=== PATIENT | female | born 1955 | race Caucasian/White ===

== ENCOUNTER 2019-06-29 21:45 | Inpatient (IN) ==
[2019-06-30] MEDS ORDERED: ONDANSETRON INJ 2 MG/ML 2 ML VIAL IV PRN (01:57)
[2019-06-30] MEDS ORDERED: KETOROLAC 30 MG/ML VIAL IV PRN (01:57)
[2019-06-30] MEDS ORDERED: ACETAMINOPHEN 325 MG TAB PO PRN ×2 (01:57→02:06)
--- NOTE | 2019-06-30 02:16 | History & Physical Report ---
Date of Service June 30, 2019 Assessment & Plan (1) Femur fracture, right: 63 yo F with hx osteoporosis admitted for evaluation and repair of right distal femur fracture secondary to mechanical fall. 1) Distal femur fracture - pain control with tylenol and toradol, patient has requested to avoid narcotics as she had a bad experience with percocet previously. - orthopedic surgery consult - CBC, BMP in AM to eval electrolytes and Hg/Hct 2) Osteoporosis - Vit D and calcium level in AM 3) Left sided rib pain - CXR ordered to assess for rib splint or fracture DVT ppx: not indicated, low risk FEN/GI: NPO, IV NS @ 117 ml/hr Code Status: Full Code Dispo: Med/Surg (2) Osteoporosis: Admission and Anticipated Discharge Date Admission Date: June 30, 2019 History of Present Illness 63 yo F with osteoporosis and hx of multiple fractures direct admitted to the medical service from outside hospital after mechanical fall resulting in distal R femur fracture. She says she tripped over a conveyor belt at work, fell onto her right knee and then fell sideways onto her left side. She denies any seizures, blurry vision, dizziness prior to the fall and denies loss of consciousness. She rates the pain as a 12/10 when trying to move the right leg and is tolerable when she keeps the leg still. She denies any recent sick contacts, fevers, chills. Attests to some left sided intercostal soreness but denies radiation of pain. Primary Care Provider: Ras Capellan Allergies Allergy/AdvReac Type Severity Reaction Status Date / Time azithromycin AdvReac Dizziness Verified 06/30/19 01:59 Penicillins AdvReac Unknown Verified 06/30/19 01:59 Past Med/Surg History Medical History Hearing deficit Tinnitus Shoulder pain with history of repair of rotator cuff Surgical History History of arthroscopy 08/15/17 shoulder History of breast biopsy right History of cataract surgery cataract extraction and insertion of intraocular lens History of repair of rotator cuff right x1, left x2 Hx of lumpectomy right breast, benign Family History Mother Alzheimer disease Father Hypertension Family/Other Cancer Diabetes mellitus, type 2 Social History Preferred Language: Botswanan Communication Ability: Effective Order Manager Required: No Beliefs That Will Affect Care: None marital status: Current Living Situation: Spouse Other Information That Helps Us Care for You: No Feels Safe at Home: Yes Safety Concerns: Feels Safe At This Time Smoking Status: Never smoker Hx Alcohol Use: Yes Alcohol type: beer and wine Hx Substance Use: No Review of Systems Constitutional: no fever, no chills, no body aches and no fatigue Respiratory: no cough and no dyspnea Cardiovascular: no chest pain, no dyspnea and no edema Gastrointestinal: no abdominal pain, no nausea, no vomiting, no constipation and no diarrhea/loose stools Genitourinary: no dysuria Neurologic: + falls; no loss of sensation and no numbness Physical Exam Constitutional: cooperative; no acute distress and not ill appearing Neck: normal visual inspection Respiratory: normal respiratory effort and able to speak in complete sentences; no respiratory distress, no labored breathing, no retractions, no cough and no audible wheezes Auscultation: lungs clear to auscultation bila terally; no crackles, no rales, no rhonchi and no wheezes Cardiovascular: Rate/Rhythm: regular rate and regular rhythm Heart Sounds: normal S1 and normal S2; no gallop, no murmur and no cardiac rub Vessels: posterior tibial pulses present Extremities: no pedal edema and no edema Chest (Breasts): Additional Comments: Mild tenderness/soreness to palpation under left breast, no discernable point tenderness along rib. No overlying bruising or erythema. Gastrointestinal (Abdomen): Inspection/Auscultation: abdomen normal to inspection and normal bowel sounds; abdomen not distended Percussion/Palpation: abdomen soft; abdomen nontender, no guarding, abdomen not rigid and no abdominal mass Musculoskeletal: abrasions present on knees bilaterally, mild superficial redness on right thigh, no discernable hematoma, no calf tenderness bilaterally, no difference in length of lower extremities Results & Data Results & Data ([facility]) Vital Signs (Past 12 Hours) Vital Signs Temp Pulse Resp BP Pulse Ox 06/30/19 00:35 36.9 C 62 16 149/86 H 98 Distal R femur Fracture per outside XR Supervising Physician Co-Signing Physician Notes Attending addendum: I have physically seen this patient, have supervised the medical residents activities, and agree with the H&P unless as otherwise noted. Assessment and Plan: Distal right femur fracture- Patient accepted in transfer from [facility]. Tylenol 650 mg p.o. every 6 hours PRN mild pain or temperature. Toradol 30 mg IV every 6 hours PRN moderate pain. Morphine sulfate 2 mg IV every 4 hours as needed severe pain. Order baseline laboratories CBC with differential, chemistry profile, magnesium, PT, PTT, INR, EKG and chest x-ray. Orthopedic surgery is aware of the patient and will see patient in the a.m. N.p.o. after midnight. Remainder of orders and notations as noted. Resident Activity Tracking Resident Involvement: Resident Care Provided Care Provided: Adult [facility]
[2019-06-30] MEDS: SODIUM CHLORIDE 0.9% 1000ML 1,000 ML IV SCH ×3 (02:19→19:39)
[2019-06-30 05:50] LABS: Basophils # (auto) 0.02 K/uL (0-0.2); Basophils % (auto) 0.2 %; Eosinophils # (auto) 0.04 K/uL (0-0.5); Eosinophils % (auto) 0.5 %; Hematocrit (blood only) 37.1 % (37-47); Hemoglobin 12.4 g/dL (12.0-16.0); Immature Granulocytes # (auto) 0.01 K/uL (0.00-0.02); Immature Granulocytes % (auto) 0.1 %; Lymphocytes # (auto) 1.42 K/uL (1.2-3.4); Lymphocytes % (auto) 16.6 %; Mean Corpuscular Hemoglobin 31.4 pg (25-34); Mean Corpuscular Hgb Conc 33.4 g/dL (32-36); Mean Corpuscular Volume 93.9 fL (80-100); Mean Platelet Volume 10.4 fL (7.4-10.4); Monocytes # (auto) 0.51 K/uL (0.11-0.59); Neutrophils # (auto) 6.55 K/uL (1.4-6.5); Neutrophils % (auto) 76.6 %; Platelet Count 263 K/uL (130-400); RDW Coefficient of Variation 12.8 % (11.5-14.5); RDW Standard Deviation 44.4 fL (36.4-46.3); Red Blood Count 3.95 M/uL (4.2-5.4); White Blood Count 8.55 K/uL (4.8-10.8)
[2019-06-30 06:28] LABS: Calcium 8.5 mg/dl (8.5-10.1); Creatinine Clr Calc Pharmacy 74.3 ml/min; Est GFR (African American) 95.4; Est GFR (Non-African American) 82.3; Potassium 3.8 mmol/L (3.5-5.1)
--- NOTE | 2019-06-30 08:11 | XRay Report ---
XR ribs LT min 3V w CXR1V CLINICAL HISTORY: 63 years-old Female presenting with left rib pain. TECHNIQUE: AP view of the chest and frontal and oblique views of the left ribs were obtained. COMPARISON: None. FINDINGS: Atherosclerosis of the aortic arch. Top normal size of the cardiac silhouette. Lungs may be mildly hy perinflated. No focal opacity. No large effusion or pneumothorax. Mild multilevel degenerative change s of the spine. Upper abdomen normal. No displaced left rib fracture. IMPRESSION: 1. No acute cardiopulmonary disease. 2. No radiographic evidence of left rib fracture. ACT 112: Negative or not required by law. Electronically signed by: Cristhian Monterroso M.D. 06/30/2019 8:10 AM
--- NOTE | 2019-06-30 11:21 | Orthopedic Consultation ---
Date of Consultation June 30, 2019 Assessment & Plan (1) Femur fracture, right: Right distal femur fracture minimally displaced. I discussed the case with Dr. Valerio and he has reviewed the films. Plan for CT scan of the right knee and for completeness, we will get a full-length femur film. For now, plan for immobilizer to the right knee, ice and elevation, pain control. We will review the CT scan when finished and if it is truly nondisplaced fracture, we will plan for orthotics to measure her for a hinged knee brace locked in extension and start her on PT and OT protocols with nonweightbearing right lower extremity. Await CT scan for final decision on treatment. Thank you for this consult. History of Present Illness Reason for Consultation: Right distal femur fracture. Attending Physician: Yossi Beard DO History of Present Illness Patient is a 63-year-old white female who states that she was at work yesterday and while walking around a conveyor belt, her left foot caught a piece of steel I-beam that was sticking out from the conveyor belt, she lost her balance, and fell onto her right knee and rolled onto her left side. She had immediate pain in her right knee. She was unable to ambulate and was unable to bear weight on the right lower extremity because of the pain in her right knee. She had noticed that the knee had swollen and at that point she was taken to the hospital at [facility]. X-rays were taken and was found that she had a suspected distal femur fracture. She was transferred down to [facility]. [facility] and we have been asked to see her for her femur fracture. Currently she is awake and alert and has no complaints. Pain is under better control and she is tolerating well. Trying to move the knee however causes her discomfort. Denies any loss of consciousness at the time of the fall. She denies any chest pain, shortness of breath, lightheadedness prior to or after the fall. Allergies Allergy/AdvReac Type Severity Reaction Status Date / Time azithromycin AdvReac Dizziness Verified 06/30/19 01:59 Penicillins AdvReac Unknown Verified 06/30/19 01:59 Patient History Medical History Hearing deficit Tinnitus Shoulder pain with history of repair of rotator cuff Surgical History History of arthroscopy 08/15/17 shoulder History of breast biopsy right History of cataract surgery cataract extraction and insertion of intraocular lens History of repair of rotator cuff right x1, left x2 Hx of lumpectomy right breast, benign Family History Mother Alzheimer disease Father Hypertension Family/Other Cancer Diabetes mellitus, type 2 Social History Preferred Language: Italian Communication Ability: Effective Documentum Consultant Required: No Beliefs That Will Affect Care: None marital status: Current Living Situation: Spouse Other Information That Helps Us Care for You: No Feels Safe at Home: Yes Safety Concerns: Feels Safe At This Time Smoking Status: Never smoker Hx Alcohol Use: Yes Alcohol type: beer and wine Hx Substance Use: No Review of Systems Review of Systems: All systems reviewed & are unremarkable except as noted in HPI & below As per admitting history and physical. No recent fevers, chills, unexplained weight loss or weight gain, flu or cold-like symptoms, shortness of breath, chest pain, chest pressure, increased cough or sputum production, abdominal pain, nausea, vomiting, diarrhea, melena, dysuria. Physical Exam Physical Exam: Initial exam focuses on the right lower extremity. Abrasions are noted on both knees. Right knee is moderately swollen and mildly tense on palpation with tenderness. Left knee appears not to be swollen compared to the right. Range of motion is very limited with the right knee due to pain at this time. She allows me to take her through gentle range of motion and I can get her to full extension however flexion is very limited due to tightness from her effusion and pain in the distal femur. It is difficult to assess the collateral ligaments at this time but I do not feel that they have been compromised. She has exquisite tenderness on palpation and also examination of her lateral collateral/distal lateral condyle. Much less so on the medial aspect. Trying to assess the cruciate ligaments is difficult with her swelling but they appear intact. She has no tenderness of the mid thigh and denies pain in the right hip on palpation. Range of motion is limited when attempting this due to her right knee pain. Right ankle and toes have good range of motion at this time and are nontender. Left lower extremity appears unaffected and has good range of motion at the left hip knee and ankle. She has some mild tenderness of her left elbow however she has good range of motion of the elbow at this time without crepitus or severe pain. No overt areas of bruising or abrasions are noted. Shoulders are nontender bilaterally on palpation and range of motion is intact. Right elbow has good range of motion is nontender. Both wrists are without discomfort and have good range of motion. Her neck is nontender on palpation and range of motion is intact. She denies any thoracic or low back pain at this time. There is no gross motor or sensory loss seen at this time. Distal pulses are equal bilaterally of the upper and lower extremities. Results & Data ([facility]) Vital Signs (Past 12 Hours) Vital Signs Temp Pulse Pulse Resp BP BP Pulse Ox 06/30/19 07:25 36.9 C 73 16 127/70 97 06/30/19 00:35 36.9 C 62 16 149/86 H 98
--- NOTE | 2019-06-30 12:10 | History & Physical Bridge Note ---
Date of Service June 30, 2019 History & Physical Bridge Note I have examined the patient, reviewed the History & Physical and in the interval since the performance of the History & Physical I have noted the following changes of clinical significance: patient doing well, says her pain is a 1 out of 10 if she does not move, becomes 10 out of 10 with movement talked with orthopedics, no plans for surgery today will get CT of the femur to better determine fracture, if it involves joint at all leaning towards non operative management, would just be NWB on the affected leg allow patient to eat today
--- NOTE | 2019-06-30 12:49 | CT Scan Report ---
CT knee RT wo con HISTORY: 63 years-old Female Distal Femur Fx acute fracture of the right distal femur COMPARISON: Right knee radiographs 06/29/2019 TECHNIQUE: Multiple axial CT images of the right knee were obtained without the use of IV contrast. A dose lowering technique was used consistent with the principals of ALARA. FINDINGS: There is a large lipohemarthrosis present. Mild to moderate deep tissue edema surrounds the distal fe mur. Arterial calcifications are noted. There is an acute obliquely oriented intra-articular fracture of the distal femoral metadiaphysis with proximal extension of the fracture outside the [id number] w extending at least 11 cm proximal to the distal articular surface of the lateral femoral condyle. T he distal extent of the fracture extends into the anterior and posterior lateral portions of the inte rcondylar distribution femur. Fracture separation anteriorly measures up to 3 cm transversely. No int ra-articular loose body. The medial femoral condyle is intact. The imaged proximal tibia and fibula a lso appear intact. Mild to moderate medial compartment with mild lateral and patellofemoral compartme nt osteoarthritis. Demineralized appearance of the bones. IMPRESSION: 1. Acute intra-articular distal femoral fracture without significant displacement as detailed above. Note that the proximal extent of the fracture extends into the femoral diaphysis outside the field of view. 2. Large lipohemarthrosis. 3. No additional acute fracture or intra-articular loose body. 4. 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 ACT 112: Negative or not required by law. The above report was generated using voice recognition software. It may contain grammatical, syntax o r spelling errors. Electronically signed by: Andreas Aguilera M.D. 06/30/2019 12:48 PM
--- NOTE | 2019-06-30 13:12 | XRay Report ---
XR femur RT 2V routine HISTORY: 63 years-old Female Right Distal Femur Fx acute femoral fracture COMPARISON: CT of the right knee of same day, radiograph the right knee 06/29/2019 TECHNIQUE: 2 views of the right femur FINDINGS: Acute intra-articular fracture of the distal femoral metadiaphysis extends into the lateral aspect of the intercondylar distal femur. No significant displacement. The proximal extent of the fracture is approximately 16 cm from the distal articular cortex. Mild right hip osteoarthritis. Large lipohemart hrosis of the knee. IMPRESSION: 1. Acute nondisplaced intra-articular fracture of the distal femoral metadiaphysis, proximal extent o f the fracture extending greater than 16 cm from the distal articular cortex. 2. Large lipohemarthrosis. ACT 112: Negative or not required by law. The above report was generated using voice recognition software. It may contain grammatical, syntax o r spelling errors. Electronically signed by: Andreas Aguilera M.D. 06/30/2019 1:10 PM
[2019-07-01] MEDS: SODIUM CHLORIDE 0.9% 1000ML 1,000 ML IV SCH (03:42)
--- NOTE | 2019-07-01 09:54 | Orthopedic Progress Note ---
Date of Service July 01, 2019 Assessment & Plan (1) Femur fracture, right: Right distal intra-articular femur fracture Case discussed with Dr. Valeroi. With the articular fracture that is widened approximately 4 to 5 mm at the patella femoral joint line, it is felt that ORIF with 7.3 cannulated screws is warranted to alleviate any tracking problems or damage to the patellar articular surface; also to aid with healing. Patient is in agreement with surgery. Patient is added on the OR schedule for tomorrow. Admission and Anticipated Discharge Date Admission Date: June 30, 2019 Subjective Patient currently sitting up in bed. She is awake and alert. She appears comfortable. No new complaints. Asking that her IV fluids can be held for now if not needed. We discussed that I would talk to Dr. Orellana about that. I discussed the CT findings with [place] [facility] physicians. Discussed with the patient that the fracture that goes down into the distal portion of the distal femur will need surgical correction. Discussed that most likely, 7.3 cannulated screws be used to help close the fracture gap. The widening of the fracture in the joint will possibly cause problems with subsidence and distal femoral alignment, patella tracking and possibly cause damage to the articular surface of the distal femur and the patella. Patient is understanding and is in agreement for her surgery. All potential risks and benefits related to the patient's care were considered regarding the current Covid-19 pandemic. The patient's current condition is deemed as urgent necessitating surgery now and performing surgery at this time will prevent further morbidity and likely worsening of the patient's condition including further displacement of the fracture, nonunion, DVT, PE, skin ulceration, osteomyelitis, loss of limb or loss of life. The patient will be scheduled for surgery now without any further waiting period as this condition is urgent and indicated. Physical Exam Physical Exam: Patient tolerating the immobilizer well. Leg is elevated on one pillow. No new changes to the exam. Neurovascular is intact. Toes are mobile. Results & Data ([facility]) Vital Signs (Past 12 Hours) Vital Signs Temp Pulse Resp BP Pulse Ox 07/01/19 07:18 36.8 C 61 18 168/87 H 96 06/30/19 23:13 37.1 C 75 16 151/81 H 96 Diagnostic Findings Patient: REBECCA CHATMAN Date: 06/30/19 MR#: [id number]: [id number] [facility] Acct ID:[id number]: [facility] Zip: [place] [address] Age: 63Location: 3E Sex: F Room/Bed: E3041 Att Phy: Yossi Beard D.O.Diagnosis: RIGHT FEMUR FRACTURE Beti Phy: Ras Capellan M.D.Service Date: 06/30/19 Fam Phy:Interpreting Phy: Deo Aguilera Admit Phy: Lobo Mayo M.D. Ordering Phy: Guillermo Serrano PA-C cc: ~ CT knee RT wo con HISTORY: 63 years-old Female Distal Femur Fx acute fracture of the right distal femur COMPARISON: Right knee radiographs 06/29/2019 TECHNIQUE: Multiple axial CT images of the right knee were obtained without the use of IV contrast. A dose lowering technique was used consistent with the principals of ALARA. FINDINGS: There is a large lipohemarthrosis present. Mild to moderate deep tissue edema surrounds the distal femur. Arterial calcifications are noted. There is an acute obliquely oriented intra-articular fracture of the distal femoral metadiaphysis with proximal extension of the fracture outside the [id number] extending at least 11 cm proximal to the distal articular surface of the lateral femoral condyle. The distal extent of the fracture extends into the anterior and posterior lateral portions of the intercondylar distribution femur. Fracture separation anteriorly measures up to 3 cm transversely. No intra-articular loose body. The medial femoral condyle is intact. The imaged proximal tibia and fibula also appear intact. Mild to moderate medial compartment with mild lateral and patellofemoral compartment osteoarthritis. Demineralized appearance of the bones. IMPRESSION: 1. Acute intra-articular distal femoral fracture without significant displacement as detailed above. Note that the proximal extent of the fracture extends into the femoral diaphysis outside the field of view. 2. Large lipohemarthrosis. 3. No additional acute fracture or intra-articular loose body. 4. 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 XR femur RT 2V routine HISTORY: 63 years-old Female Right Distal Femur Fx acute femoral fracture COMPARISON: CT of the right knee of same day, radiograph the right knee 06/29/2019 TECHNIQUE: 2 views of the right femur FINDINGS: Acute intra-articular fracture of the distal femoral metadiaphysis extends into the lateral aspect of the intercondylar distal femur. No significant displacement. The proximal extent of the fracture is approximately 16 cm from the distal articular cortex. Mild right hip osteoarthritis. Large lipohemarthrosis of the knee. IMPRESSION: 1. Acute nondisplaced intra-articular fracture of the distal femoral metadiaphysis, proximal extent of the fracture extending greater than 16 cm from the distal articular cortex. 2. Large lipohemarthrosis.
--- NOTE | 2019-07-01 11:06 | Hospitalist Progress Note ---
Date of Service July 01, 2019 Assessment & Plan (1) Femur fracture, right: Right distal femur fracture after a mechanical fall. - Plan for surgery tomorrow to fix distal end. - NPO @ midnight - Pain control (2) DVT prophylaxis: SCDs - Low DVT risk per admission calculator - Per ortho, will start ASA after surgery for post-op DVT ppx Admission and Anticipated Discharge Date Admission Date: June 30, 2019 Subjective Less pain and swelling today. In good spirits. Overall, has been up and in the room. Reports no fevers/chills, chest pain, shortness of breath, abdominal pain, nausea, or vomiting. Physical Exam Constitutional: WD/WN, vitals as above Eyes: EOM intact bilaterally; no conjunctival abnormality ENMT: external ear and nose normal, oropharynx normal Neck: trachea midline, no thyromegaly normal visual inspection Respiratory: normal respiratory effort, lungs clear to auscultation no respiratory distress Cardiovascular: RRR, no murmur, no edema Gastrointestinal (Abdomen): Inspection/Auscultation: abdomen normal to inspection; abdomen not distended Musculoskeletal: no cyanosis or clubbing, extremities motor strength 5/5 Extremities: + limited ROM of extremities (Right knee brace on) Skin: no rashes, warm and dry Neurologic: moves all extremities and awake Psychiatric: Orientation: alert, oriented to person and cooperative Results & Data Results & Data ([facility]) Vital Signs (Past 12 Hours) Vital Signs Temp Pulse Resp BP Pulse Ox 07/01/19 07:18 36.8 C 61 18 168/87 H 96 06/30/19 23:13 37.1 C 75 16 151/81 H 96 PG Care Time/CCT Total # of Minutes Spent Total Time Spent with Patient: Total time spent is greater than 50% in coordination of care (as documented) at patient's floor/unit and/or counseling patient: Coding Level of Care Code 45889 Subseq Hosp Care Lvl 2 Diagnoses Femur fracture, right S72.91XA DVT prophylaxis Z29.9
--- NOTE | 2019-07-01 15:05 | Anesthesiology Consultation ---
Date of Service July 01, 2019 Assessment & Plan (1) Encounter for pre-operative examination: Chart Review Chart Review: Acceptable Risk for Surgery and Patient NOT seen in Pre Admission Testing Type and screen pending at this time. Will order ECG as one not seen in our system. No chemical DVT prophylaxis noted so could consider SAB if deemed necessary. Consults Requested none History Surgery Operation Date: 07/02/19 07:30 Proposed Procedures p Right Distal Femur Fracture Open Reduction Internal Fixation - Yamil Valerio DO Height/Weight Height: 5 ft 4 in Weight: 77.4 kg Allergies Allergy/AdvReac Type Severity Reaction Status Date / Time azithromycin AdvReac Dizziness Verified 06/30/19 01:59 Penicillins AdvReac Unknown Verified 06/30/19 01:59 Medications Active Medications Generic Name Dose Route Start Last Admin Trade Name Freq PRN Reason Stop Dose Admin Acetaminophen 650 mg 06/30/19 02:06 06/30/19 23:30 Tylenol PO 07/30/19 01:56 650 mg Q6H PRN Administration Pain NPO Date Last Intake of Fluids: 07/01/19 Time Last Intake of Fluids: 23:59 Date Last Intake of Solids: 07/01/19 Time Last Intake of Solids: 23:59 Past Medical History Medical History Hearing deficit Tinnitus Shoulder pain with history of repair of rotator cuff HPI: tripped on a conveyor belt at work and sustained right distal femur fracture. Past Family History Family History Mother Alzheimer disease Father Hypertension Family/Other Cancer Diabetes mellitus, type 2 Past Surgical History Surgical History History of arthroscopy 08/15/17 shoulder History of breast biopsy right History of cataract surgery cataract extraction and insertion of intraocular lens History of repair of rotator cuff right x1, left x2 Hx of lumpectomy right breast, benign Social History Smoking Status: Never smoker Hx Alcohol Use: Yes Alcohol type: beer and wine alcohol intake frequency: holidays/special occasions only Hx Substance Use: No substance use type: does not use Physical Exam Vital Signs Last Vital Signs Temp 36.8 C 07/01/19 07:18 Pulse 61 07/01/19 07:18 Resp 18 07/01/19 07:18 BP 168/87 H 07/01/19 07:18 Pulse Ox 96 07/01/19 07:18 Testing Laboratory Results 06/30/19 05:29 06/30/19 05:29 Chest X-Ray Date: 06/30/19 XR ribs LT min 3V w [id number] CLINICAL HISTORY: 63 years-old Female presenting with left rib pain. TECHNIQUE: AP view of the chest and frontal and oblique views of the left ribs were obtained. COMPARISON: None. FINDINGS: Atherosclerosis of the aortic arch. Top normal size of the cardiac silhouette. Lungs may be mildly hyperinflated. No focal opacity. No large effusion or pneumothorax. Mild multilevel degenerative changes of the spine. Upper abdomen normal. No displaced left rib fracture. IMPRESSION: 1. No acute cardiopulmonary disease. 2. No radiographic evidence of left rib fracture.
[2019-07-02] MEDS ORDERED: fentaNYL citrate 100 MCG/2 ML VIAL ONE (06:36)
[2019-07-02] MEDS ORDERED: MIDAZOLAM HCL 1 MG/ML 2ML VIAL ONE (06:36)
[2019-07-02] MEDS ORDERED: CEFAZOLIN 2000MG 2,000 MG/15 ML SYR IV ONE (07:52)
--- NOTE | 2019-07-02 07:52 | History & Physical Bridge Note ---
Date of Service July 02, 2019 History & Physical Bridge Note I have examined the patient, reviewed the History & Physical and in the interval since the performance of the History & Physical I have noted the following changes of clinical significance: All potential risks and benefits related to the patient's care were considered regarding the current Covid-19 pandemic. The patient's current condition is deemed as urgent necessitating surgery now and performing surgery at this time will prevent further morbidity and likely worsening of the patient's condition including further displacement of the fracture, nonunion, DVT, PE, skin ulceration, osteomyelitis, loss of limb or loss of life. The patient will be scheduled for surgery now without any further waiting period as this condition is urgent and indicated.
[2019-07-02] MEDS ORDERED: CEFAZOLIN 2,000 MG/15 ML IV PUSH IV ONE (07:53)
[2019-07-02] MEDS ORDERED: PROPOFOL IV EMULSION 10 MG/ML 20 ML VIAL IV ONE (08:14)
[2019-07-02] MEDS ORDERED: MEPERIDINE HCL 25 MG/ML CARP/VIAL IV PRN (09:09)
[2019-07-02] MEDS ORDERED: PHENYLEPHRINE 100MCG/ML 5ML SYR IV PRN (09:09)
[2019-07-02] MEDS ORDERED: LABETALOL HCL IV 5 MG/ML 20ML IV PRN (09:09)
[2019-07-02] MEDS ORDERED: ATROPINE SULFATE 0.1 MG/ML 10ML SYR IV PRN (09:09)
[2019-07-02] MEDS ORDERED: fentaNYL citrate 100 MCG/2 ML VIAL IV PRN (09:09)
[2019-07-02] MEDS ORDERED: ePHEDrine sulfate 50 MG/ML AMP IV PRN (09:09)
[2019-07-02] MEDS ORDERED: ONDANSETRON INJ 2 MG/ML 2 ML VIAL IV PRN ×2 (09:09→11:52)
[2019-07-02] MEDS ORDERED: HYDROmorphone INJ 1 MG/ML SYRINGE IV PRN (09:09)
[2019-07-02] MEDS ORDERED: BUPIVACAINE 0.5 % 5 MG/1 ML MPF 30ML VIAL ONE (09:15)
--- NOTE | 2019-07-02 09:36 | Fluoroscopy Report ---
FL femur RT 2V HISTORY: 63 years-old Female RT DISTAL FEMUR FX follow-up study in a patient with right distal femor al fracture COMPARISON: Right femur radiographs 06/30/2019 TECHNIQUE: 2 spot fluoroscopic images of the right femur were obtained utilizing 153.9 seconds fluoro scopy time FINDINGS: Status post placement of 3 lateral to medial approach elongated cannulated screws fixating the previo usly described distal femoral fracture. There is satisfactory alignment. The hardware appears intact. Expected postoperative soft tissue swelling with deep tissue air. IMPRESSION: Fluoroscopic assistance as above. Please see operative report for further details. ACT 112: Negative or not required by law. The above report was generated using voice recognition software. It may contain grammatical, syntax o r spelling errors. Electronically signed by: Andreas Aguilera M.D. 07/02/2019 9:34 AM
--- NOTE | 2019-07-02 09:38 | Post Operative Brief Note ---
Immediate Post Op Note v1 Date of Surgery July 02, 2019 Pre & Post Diagnosis Operation Date: 07/02/19 07:30 Pre-Op Diagnosis: RIGHT DISPLACED INTERCONDYLAR DISTAL FEMUR FRACTURE, HEMARTHROSIS RIGHT KNEE Post-Op Diagnosis: RIGHT DISPLACED INTERCONDYLAR DISTAL FEMUR FRACTURE, HEMARTHROSIS RIGHT KNEE I identified the patient and participated in the time-out.: Yes Procedure Operation Date: 07/02/19 07:30 Actual Procedures p Right Distal Femur Fracture Open Reduction Internal Fixation, Right Knee Arthrotomy with evacuation of hematoma, (Right) - Yamil Valerio DO Surgeon Yamil Valerio DO Occupational Therapist Assistants Yon Sanchez PA-C Estimated Blood Loss 15 Findings Consistent with Post-Op Diagnosis Specimens None Anesthesia Type Spinal MAC Complications none Disposition Accompanied Patient To Recovery: No Disposition: Recovery Room
--- NOTE | 2019-07-02 10:31 | Operative Report (OR) ---
DATE OF OPERATION: 07/02/2019 PREOPERATIVE DIAGNOSES: 1. Right displaced intercondylar distal femur fracture. 2. Hemarthrosis of the right knee. POSTOPERATIVE DIAGNOSES: 1. Right displaced intercondylar distal femur fracture. 2. Hemarthrosis of the right knee. PROCEDURES: 1. Right knee open reduction internal fixation displaced intercondylar distal femur fracture. 2. Arthrotomy of right knee. 3. Evacuation of hemarthrosis, right knee. SURGEON: Yamil Valerio DO CARDER BLANKETS: Yon Sanchez PA-C, who was present for patient positioning, sterile prep and drape, management of retractors and instruments. He was present through the critical portions of the case including wound closure, application of sterile dressing and transport of the patient to recovery. ANESTHESIA: Spinal MAC with local. SPECIMENS: None. DRAINS: None. COMPLICATIONS: None. BLOOD LOSS: 15 mL PERTINENT HISTORY: This is a 63-year-old woman who was at work 2 days ago, she fell and tripped over a conveyor belt landing on her right knee and her left side. She had immediate pain and swelling in the right knee, had difficulty with ambulation. Was seen in the [place] area in the ER. She was then transferred to [facility] for definitive care and management. She had no loss of consciousness, no head or neck trauma. Right knee pain and inability to ambulate. Radiographs and CT scan demonstrated a displaced right intercondylar distal femoral fracture with hemarthrosis. The patient was then scheduled for surgery as indicated. Despite the risks associated with the global COVID-19 pandemic, the patient's care and surgery was deemed urgent and appropriate for scheduling after review. All potential risks, benefits, complications, alternatives, rehab, potential for incomplete relief of symptoms, need for further surgery, DVT, PE, , persistent pain, swelling, scarring, weakness, neurovascular injury, wound complications, hardware failure, nonunion, malunion and stiffness and swelling were discussed with the patient. The patient decided to proceed with the procedure as indicated. DESCRIPTION OF PROCEDURE: The patient was taken to the operative suite, placed supine on the operating room table. After review of the consent and identification of proper operative site, patient was administered a spinal anesthetic and sedation. She was maintained in the supine position. Tourniquet was applied to the proximal right thigh; however, was not used during the case. Right lower extremity was then sterilely prepped and draped in usual fashion. After surgical timeout was performed 10 blade scalpel, incision was performed over the lateral condyle of the femur. A second incision was made over the medial epicondyle of the femur. Under live fluoroscopic assistance, percutaneous placement of reduction tongs was performed at the intercondylar axis. This provided compression at the fracture site into near anatomic position and alignment. Next three 2.25 mm cannulated guide pins were placed in a triangular fashion at the lateral distal femur through 3 small stab incisions at the lateral aspect of the distal femur. Under live fluoroscopic assistance these guide pins were placed to make certain that they were crossing the fracture site in a nearly perpendicular fashion and stabilizing the fracture in anatomic alignment and position while avoiding Blumensaat's line and the intercondylar notch of the femur. Care was also taken to avoid penetration of the articular surfaces of the distal femur. Next three 7.3 mm long thread cannulated screws were placed over the guide pins to achieve alignment and compression at the fracture site. Guide pins were removed. Next, a 10 blade scalpel was then used to make an arthrotomy incision in the lateral knee joint capsule and the hemarthrosis, which was noted to be tense and palpable, was then evacuated without difficulty. Next, all skin incisions and arthrotomy incision was then copiously irrigated with sterile normal saline and bacitracin. Once this was completed, final radiographs were obtained in AP and lateral projections and the dermis was closed at the arthrotomy site with buried interrupted 2-0 Vicryl. The skin was then closed using interrupted 4-0 nylon sutures both medial and lateral followed by application of a sterile compressive dressing and a knee immobilizer. The tourniquet was removed as it was not used during the case. The patient was awakened and taken to recovery in stable condition. I attest to the content of the Intraoperative Record and any orders documented therein. Any exception s are noted below.
--- NOTE | 2019-07-02 11:37 | Anesthesiology Progress Note ---
Date of Service July 02, 2019 Anesthesia Post Procedure Vital Signs Vital Signs: Temp Pulse Pulse Resp BP BP Pulse Ox 07/02/19 11:18 37.1 C 53 L 13 126/73 96 07/02/19 11:05 37.1 C 54 L 12 113/71 96 07/02/19 10:55 53 L 15 112/66 97 07/02/19 10:45 63 15 113/70 96 07/02/19 10:35 58 L 15 124/70 99 07/02/19 10:25 58 L 15 115/65 96 07/02/19 10:15 55 L 16 113/71 98 07/02/19 10:05 55 L 17 114/72 97 07/02/19 09:55 57 L 17 108/65 96 07/02/19 09:45 64 16 109/63 99 07/02/19 09:37 36.5 C 61 12 97/64 L 99 07/02/19 06:59 37 C 73 16 159/92 H 98 07/02/19 06:39 36.8 C 74 16 133/81 96 07/01/19 22:54 37.2 C 74 16 143/82 H 95 07/01/19 15:13 37.0 C 69 16 136/81 97 Pain Intensity Right Leg: Pain Intensity: 1 Transfer of Care Handoff Completed per policy Notes Mental Status: alert / awake / arousable Patient Amnestic to Procedure: Yes Nausea / Vomiting: adequately controlled Pain: adequately controlled Airway Patency, RR, SpO2: stable & adequate BP & HR: stable & adequate Hydration State: stable & adequate Neuraxial Anesthesia: was administered and sensory block is resolving Anesthetic Complications: no major complications apparent and Pt Satisfied with anesthetic care
[2019-07-02] MEDS ORDERED: bisacodyL 10 MG SUPP PR PRN (11:52)
[2019-07-02] MEDS ORDERED: METOCLOPRAMIDE HCL INJ 5 MG/ML 2 ML VIAL IV PRN (11:52)
[2019-07-02] MEDS ORDERED: HYDROmorphone INJ 0.5 MG/0.5 ML SYR IV PRN (11:52)
[2019-07-02] MEDS ORDERED: MAGNESIUM HYDROXIDE SUSP 30 ML UDC PO PRN (11:52)
[2019-07-02] MEDS ORDERED: NALOXONE HCL 0.4 MG/1 ML VIAL/CARP IV PRN (11:52)
[2019-07-02] MEDS ORDERED: NO NSAIDS SCH (11:52)
[2019-07-02] MEDS ORDERED: OXYCODONE HCL IR 5 MG TAB (IMMEDIATE RELEASE) PO PRN (11:52)
[2019-07-02] MEDS ORDERED: ALUMINUM/MAGNESIUM SUSP 30 ML UDC PO PRN (11:52)
[2019-07-02] MEDS: SODIUM CHLORIDE 0.9% 1000ML 1,000 ML IV SCH ×2 (12:15→22:05)
--- NOTE | 2019-07-02 14:04 | Hospitalist Progress Note ---
Date of Service July 02, 2019 Assessment & Plan (1) Femur fracture, right: Right distal femur fracture after a mechanical fall CT shows fracture extends into the joint s/p internal reduction/fixation, evacuation of hematoma, right knee arthrotomy on 07/[address] Valerio doing well immediately post op breathing well, no nausea, vitals stable will check blood work in the morning, CBC and BMP d/c planning and activity per ortho (2) DVT prophylaxis: SCDs - Low DVT risk per admission calculator - Per ortho, will start ASA after surgery for post-op DVT ppx Admission and Anticipated Discharge Date Admission Date: June 30, 2019 Subjective patient seen after surgery today, tolerated well minimal pain in right knee, starting to have some tingling in the leg she is breathing well, no cough, no chest pain/pressure, no nausea she is eating some lunch reviewed operative note, procedure went well Review of Systems Review of Systems: All systems reviewed & are unremarkable except as noted in HPI & below Musculoskeletal: + joint pain (right knee, mild pain) Physical Exam Constitutional: WD/WN, vitals as above Eyes: PERRL, conjunctivae normal, anicteric sclerae ENMT: external ear and nose normal, oropharynx normal Neck: trachea midline, no thyromegaly Respiratory: normal respiratory effort, lungs clear to auscultation Cardiovascular: RRR, no murmur, no edema Gastrointestinal (Abdomen): normal bowel sounds, soft, nontender, no hepatosplenomegaly Musculoskeletal: Head/Neck/Chest: normocephalic and head atraumatic Extremities: + limited ROM of extremities (right leg); + extremities abnormal to inspection (right knee immobilized), no cyanosis, no clubbing and no petechiae Skin: no rashes, warm and dry Neurologic: patellar DTR's 2+ bilat, sensation intact and PERRL, EOMI, accommodation nl, no face palsy, no dysarthria Psychiatric: A+Ox3, euthymic affect Lymphatic: no cervical or axillary lymphadenopathy Results & Data Results & Data ([facility]) Vital Signs (Past 12 Hours) Vital Signs Temp Pulse Pulse Resp BP BP Pulse Ox 07/02/19 13:44 36.7 C 74 16 143/84 H 96 07/02/19 12:41 37 C 63 16 145/85 H 97 07/02/19 12:15 36.5 C 64 16 138/84 99 05/15/20 11:45 36.4 C L 65 16 130/80 96 07/02/19 11:18 37.1 C 53 L 13 126/73 96 07/02/19 11:05 37.1 C 54 L 12 113/71 96 07/02/19 10:55 53 L 15 112/66 97 07/02/19 10:45 63 15 113/70 96 07/02/19 10:35 58 L 15 124/70 99 07/02/19 10:25 58 L 15 115/65 96 07/02/19 10:15 55 L 16 113/71 98 07/02/19 10:05 55 L 17 114/72 97 07/02/19 09:55 57 L 17 108/65 96 07/02/19 09:45 64 16 109/63 99 07/02/19 09:37 36.5 C 61 12 97/64 L 99 07/02/19 06:59 37 C 73 16 159/92 H 98 07/02/19 06:39 36.8 C 74 16 133/81 96 Laboratory Results Laboratory Results - last 24 hr 07/01/19 14:20 Blood Type O Positive Antibody Screen NEGATIVE Medications Administered Current Inpatient Medications Acetaminophen (Tylenol) 1,000 mg PO Q8 [facility] Stop: 08/01/19 13:59 Al Hydrox/Mg Hydrox/Simethicone (Maalox) 15 ml PO Q4H PRN PRN Reason: Heartburn Stop: 08/01/19 11:51 Aspirin (Ecotrin Ectab) 81 mg PO BID [facility] Stop: 08/01/19 20:59 Bisacodyl (Dulcolax) 10 mg GA DAILY PRN PRN Reason: Constipation Stop: 08/01/19 11:51 Diphenhydramine HCl (Benadryl Capsule) 25 mg PO Q8H PRN PRN Reason: Itching Stop: 08/01/19 11:51 Docusate Sodium (Colace) 100 mg PO BID [facility] Stop: 08/01/19 20:59 Hydromorphone HCl (Dilaudid) 0.5 mg IV Q4H PRN PRN Reason: Pain or Pre PT Stop: 07/16/19 11:51 Cefazolin Sodium (Ancef 2000mg) 2,000 mg in 15 mls @ 3.75 mls/min IV Q8H [facility]; Protocol Stop: 07/03/19 00:03 Sodium Chloride (Nss 1000ml) 1,000 mls @ 100 mls/hr IV .Q10H [facility] Stop: 07/03/19 06:00 Last Admin: 07/02/19 12:15 Dose: 100 mls/hr Documented by: Magnesium Hydroxide (Milk Of Magnesia) 30 ml PO Q6H PRN PRN Reason: Constipation Stop: 08/01/19 11:51 Metoclopramide HCl (Reglan) 10 mg IV Q6H PRN PRN Reason: Nausea And Vomiting Stop: 08/01/19 11:51 Miscellaneous Medication (No Nsaids) 1 ea N/A UD [facility] Stop: 08/01/19 11:51 Multivitamins (Multivitamin Tab) 1 tab PO QAM [facility] Stop: 08/02/19 08:59 Naloxone HCl (Narcan) 0.1 mg IV Q5M PRN PRN Reason: Oversedation/Resp Depression Stop: 08/01/19 11:51 Ondansetron HCl (Zofran) 4 mg IV Q6H PRN PRN Reason: Nausea/Vomiting Stop: 07/30/19 01:56 Ondansetron HCl (Zofran) 4 mg IV Q6H PRN PRN Reason: Nausea And Vomiting Stop: 08/01/19 11:51 Oxycodone HCl (Roxicodone Immediate Rel) 5 - 10 mg PO Q4H PRN PRN Reason: Pain or Pre PT Stop: 07/16/19 11:51 Sennosides (Senokot) 17.2 mg PO HS [facility] Stop: 08/01/19 20:59 PG Care Time/CCT Total # of Minutes Spent Total Time Spent with Patient: Total time spent is greater than 50% in coordination of care (as documented) at patient's floor/unit and/or counseling patient: Coding Level of Care Code 42510 Subseq Hosp Care Lvl 1 Diagnoses Femur fracture, right S72.91XA DVT prophylaxis Z29.9
[2019-07-02] MEDS: ACETAMINOPHEN 500 MG TAB PO SCH ×2 (14:50→22:04)
[2019-07-02] MEDS: CEFAZOLIN 2000MG 2,000 MG/15 ML SYR IV SCH ×2 (15:54→23:59)
--- NOTE | 2019-07-02 17:15 | Electrocardiogram Report ---
Test Reason : Blood Pressure : / mmHG Vent. Rate : 071 BPM Atrial Rate : 071 BPM P-R Int : 132 ms QRS Dur : 080 ms QT Int : 394 ms P-R-T Axes : 056 -04 038 degrees QTc Int : 428 ms Normal sinus rhythm Normal ECG When compared with ECG of 19-FEB-2011 14:04, No significant change was found Confirmed by Keyur Hernandez ([id number]) on 07/02/2019 5:15:30 PM Referred By: Lobo Mayo Confirmed By:Keyur Hernandez
[2019-07-02] MEDS ORDERED: SENNA 8.6 MG TAB PO SCH (21:00)
[2019-07-02] MEDS: DOCUSATE SODIUM 100 MG CAP PO SCH (22:05)
[2019-07-02] MEDS: ASPIRIN 81 MG ECTAB PO SCH (22:06)
--- NOTE | 2019-07-02 22:11 | Billing Data ---
Date of Service July 02, 2019 Coding Level of Care Code 12672 Initial Inpt Care Lvl 2
[2019-07-03] MEDS: ACETAMINOPHEN 500 MG TAB PO SCH (05:34)
[2019-07-03 05:47] LABS: Hematocrit (blood only) 37.2 % (37-47); Hemoglobin 12.3 g/dL (12.0-16.0); Mean Corpuscular Hemoglobin 31.1 pg (25-34); Mean Corpuscular Hgb Conc 33.1 g/dL (32-36); Mean Corpuscular Volume 94.2 fL (80-100); Mean Platelet Volume 10.4 fL (7.4-10.4); Platelet Count 235 K/uL (130-400); RDW Coefficient of Variation 12.6 % (11.5-14.5); Red Blood Count 3.95 M/uL (4.2-5.4)
[2019-07-03 06:20] LABS: BUN Creatinine Ratio 18.1 (10-20); Calcium 8.1 mg/dl (8.5-10.1); Creatinine Clr Calc Pharmacy 65.6 ml/min; Est GFR (African American) 82.8; Est GFR (Non-African American) 71.4; Potassium 3.8 mmol/L (3.5-5.1)
[2019-07-03] MEDS: DOCUSATE SODIUM 100 MG CAP PO SCH (08:29)
[2019-07-03] MEDS: ASPIRIN 81 MG ECTAB PO SCH (08:29)
--- NOTE | 2019-07-03 08:39 | Orthopedic Progress Note ---
Date of Service July 03, 2019 Assessment & Plan (1) Femur fracture, right: Postoperative day 1 status post cannulated screw fixation of a right distal femur fracture. She needs to stay nonweightbearing on the right leg. She should keep the knee immobilizer in place for now. This will be switched to a hinged knee brace when she follows up in clinic with Dr. Valerio. She needs to be evaluated by therapy this morning to ensure that she is stable with her walker. As long as she is, she can be discharged home today. She has adequate assistance at home. Follow-up with Dr. Valerio in clinic in 10 to 14 days. Admission and Anticipated Discharge Date Admission Date: June 30, 2019 Subjective She is doing very well this morning. She reports that her pain in the right knee is improved compared to preoperatively. She has been up sitting in a chair, but has not yet gotten out of bed ambulating with therapy. Physical Exam Physical Exam: Right knee dressings and immobilizer are clean, dry, and intact. Motor and sensory function is intact distally. Results & Data ([facility]) Vital Signs (Past 12 Hours) Vital Signs Temp Pulse Resp BP Pulse Ox 07/03/19 07:42 36.8 C 70 18 146/85 H 97 07/03/19 04:03 36.8 C 70 16 123/72 98 07/03/19 00:02 36.9 C 80 16 132/78 95
[2019-07-03] MEDS ORDERED: MULTIVITAMIN TAB PO SCH (09:00)
[2019-07-03 23:20] LABS: Vitamin D 1,25 30 pg/mL (18-72); Vitamin D3,1,25 30 pg/mL
--- NOTE | 2019-07-07 15:52 | Discharge Summary ---
Date of Service July 07, 2019 Admission HPI Per Admitting Provider This is a patient who sustained a fall and injury to the right upper leg. She had x-rays and CT scan that showed a displaced right distal femur fx. She was admitted for pain control and later set up for surgical management. Principal Diagnosis right distal femur fracture Discharge Exam Constitutional WD/WN, vitals as above Musculoskeletal Knee: + surgical incision (right knee--dressing C/D/I. Knee immobilizer in place) and + limited ROM of knee; no deformity, no skin erythema and no ecchymosis Neurologic normal touch/pain/proprioception Psychiatric A+Ox3, euthymic affect Speech: normal rate/rhythm/volume of speech Discharge Data Allergies Allergy/AdvReac Type Severity Reaction Status Date / Time azithromycin AdvReac Dizziness Verified 06/30/19 01:59 Penicillins AdvReac Unknown Verified 06/30/19 01:59 Consultations 06/30/19 02:29 Consult Orthopedic Surgery Routine 07/02/19 11:52 Consult Case Management - Discharge Planning Routine Procedures Performed Operation Date: 07/02/19 07:30 Actual Procedures p Right Distal Femur Fracture Open Reduction Internal Fixation(Right) - Yamil Pablo DO s Right Knee Arthrotomy with evacuation of hematoma,(Right) - Yamil Pablo DO Ordered Studies 06/30/19 11:09 CT knee RT wo con Routine 07/02/19 11:40 FL femur RT 2V Routine FL fluoroscopy <1hr Routine Hospital Course (1) Femur fracture, right: Postoperative day 1 status post cannulated screw fixation of a right distal femur fracture. She needs to stay nonweightbearing on the right leg. She should keep the knee immobilizer in place for now. This will be switched to a hinged knee brace when she follows up in clinic with Dr. Pablo. She needs to be evaluated by therapy this morning to ensure that she is stable with her walker. As long as she is, she can be discharged home today. She has adequate assistance at home. Follow-up with Dr. Pablo in clinic in 10 to 14 days. Total Time Total Time Spent Total Time Spent (In Minutes): 60 Total Time Includes: Examination of the Patient, Discharge Planning and Medication Reconciliation Discharge Plan Discharge Items Patient Disposition: Home - Home Health Services Reason For Visit: RIGHT FEMUR FRACTURE Discharge Diagnosis: right distal femur fracture Activity: Per Instructions section Weightbearing: Right non-weightbearing Non-emergency contact: Surgeon Call non-emergency contact if: your pain is not controlled, your pain is wors ening and your temperature is above 101 Follow-up/Referrals: Yamil Pablo, [Surgeon] - (Call to schedule a follow up appointment for 2 weeks from surgery.) Ras Capellan M.D. [Primary Care Provider] - Diet: Regular Addtl Attending Provider Instructions: ACTIVITY RECOMMENDATIONS: Limitations: No weight bearing to affected limb at all times. SPECIAL CARE INSTRUCTIONS: * Some drainage onto the dressing is normal and is no cause for alarm. * Some swelling is natural especially after walking. * When resting, keep your foot elevated above the level of your heart. * Call [facility] if you notice: -Increased drainage -Fever over 101 degrees F -Severe constant pain BANDAGE: * Leave bandage/cast in place unless otherwise directed. * Keep bandage/cast dry at all times. FOLLOW UP VISIT WITH DR. PABLO If appointment is not already scheduled: Please call [facility] after you get home today to schedule a follow-up appointment for [address] Pablo at . Pending Studies at Discharge: No Stand-Alone Forms: [employer], Smoking Cessation Medications and DC Order Prescriptions: New aspirin 81 mg Tablet,Delayed Release (Dr/Ec) 81 mg PO BID Qty: 60 RF: 0 acetaminophen 500 mg Tablet 1,000 mg PO Q8 Qty: 100 RF: 0 Discharge Orders: Discharge Order (Routine); Ordered 07/03/19 Ordered By: Yon Neville/Other Patient Handouts: DVT Post Op Prevention Admission Data Admit Date/Time: 06/30/19 00:32 Attending Provider: Yamil Pablo Admit Provider: Yamil Pablo Primary Care Provider: Ras Capellan Other Providers: Yamil Pablo Other Interventions: Discharge Summary Assessment (RN) Last Done: 07/03/19 09:55 DC Date/Time DO NOT enter until pt leaves facility: 07/03/19 13:49
== END 2019-07-03 13:49 | disposition home health service (06) | DRG 481 ==
LOC: SUATTDRO 06-30 00:32 → 3E 06-30 00:32